=== PATIENT | male | born 1990 | race Caucasian/White ===

== ENCOUNTER 2018-10-15 09:20 | Emergency (ER) | payer BC ==
[~2018-10-15] VITALS: Ht 177.8 cm; Wt 142.9 kg
[2018-10-15 09:29] VITALS: Ht 177.8 cm; Wt 142.9 kg
[2018-10-15 10:23] LABS: BASOPHIL % 0.5 % (0-2); PLATELET COUNT 222 x10^3mcL (130-400); RED CELL DISTRIBUTION WIDTH 13.3 % (11.5-14.5)
[2018-10-15 10:44] LABS: CALCIUM 8.6 mg/dL (8.5-10.1); CARBON DIOXIDE 26.4 mmol/L (21-32); CHLORIDE SERUM 103 mmol/L (98-107); CREATININE SERUM 1.3 mg/dL (0.7-1.3); GFR1 > 60 mL/min; GLUCOSE SERUM 134 mg/dL (74-106); POTASSIUM SERUM 3.5 mmol/L (3.5-5.1); SODIUM SERUM 140 mmol/L (136-145)
[2018-10-15 10:49] LABS: ALBUMIN 3.7 g/dL (3.4-5.0); ALKALINE PHOSPHATASE 56 U/L (46-116); ALT/SGPT 84 U/L (16-63); AMYLASE 55 U/L (25-115); AST/SGOT 46 U/L (15-37); BILIRUBIN TOTAL 0.6 mg/dL (0.20-1.00); TOTAL PROTEIN, SERUM 8.4 g/dL (6.4-8.2)
[2018-10-15 11:43] VITALS: BP 150/90
== END 2018-10-15 12:08 | disposition home or self-care (01) ==
LOC: ED 09:20
PROVIDERS: Emergency Medicine
DX: L04.0 Acute lymphadenitis of face, head and neck (principal); R50.9 Fever, unspecified
CPT/HCPCS: 36415; 86308